=== PATIENT | male | born 1965 | race Caucasian/White ===

== ENCOUNTER 2020-08-05 00:34 | Emergency (ER) | payer OTHER ==
[2020-08-05] MEDS ORDERED: Acetaminophen/oxyCODONE 325-5 MG Tab PO STA (01:21)
[2020-08-05] MEDS ORDERED: Ketorolac 60 MG/2 ML SDV IM ONE (01:21)
--- NOTE | 2020-08-05 01:27 | EDM.PDOC ---
ED HPI GENERAL MEDICAL PROBLEM - General Chief Complaint: Back Pain or Injury Stated Complaint: FELL Time Seen by Provider: 08/05/20 01:05 Source of Information: Reports: Patient, Family, RN History Limitations: Reports: Other (no old records) - History of Present Illness INITIAL COMMENTS - FREE TEXT/NARRATIVE: 54 yo male visiting for a few days from [place], [place] presents with worsening of chronic low back pain after he tripped over a fire pit. He has worsening of his L leg numbness currently. No loss of bowel or bladder control. Is having a hard time walking since the fall. Is here with his . Did not get burned when he fell. Onset: Today, Sudden Onset Date: 08/05/20 Duration: Minutes: Location: Reports: Back, Radiates to (L leg) Quality: Reports: Ache (back), Other (numbness of L leg) Severity: Severe Improves with: Reports: Rest Worsens with: Reports: Movement Context: Reports: Trauma (superimposed on chronic.) Associated Symptoms: Reports: Other (some added effort needed to empty bladder). 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 T3-T6 crush injuries Psychiatric History: Reports: PTSD Hematologic History: Reports: Anemia - Infectious Disease History Infectious Disease History: Reports: Chicken Pox, Measles, Mumps - Past Surgical History HEENT Surgical History: Reports: Adenoidectomy, Naso-Sinus Surgery, Tonsillectomy Cardiovascular Surgical History: Reports: None GI Surgical History: Reports: Appendectomy Musculoskeletal Surgical History: Reports: Arthroscopic Knee, Arthroscopic Procedure, Shoulder Surgery Other Musculoskeletal Surgeries/Procedures:: 11 surgeries on left, 2 on right arms. Social & Family History - Tobacco Use Smoking Status *Q: Never Smoker - Caffeine Use Caffeine Use: Reports: Coffee, Energy Drinks, Soda, Tea Caffeine Use Comment: lots of coffee daily - Alcohol Use Date of Last Drink: 08/05/20 - Recreational Drug Use Recreational Drug Use: No ED ROS GENERAL - Review of Systems Review Of Systems: See Below Constitutional: Reports: No Symptoms HEENT: Reports: No Symptoms Respiratory: Reports: No Symptoms Cardiovascular: Reports: No Symptoms GI/Abdominal: Reports: No Symptoms : Reports: Flank Pain (Left flank intermittently for a few days. ), Other (difficulty initiating his urine stream. ). Denies: Dysuria, Hematuria Musculoskeletal: Reports: Back Pain (low back, especially on the right. ) Skin: Reports: No Symptoms Neurological: Reports: Numbness (L leg), Difficulty Walking ED EXAM,LOWER BACK PAIN/INJURY - Physical Exam Exam: See Below Exam Limited By: No Limitations General Appearance: Alert, WD/WN, No Apparent Distress Eye Exam: Bilateral Eye: Normal Inspection Ears: Normal External Exam, Normal Canal, Hearing Grossly Normal Nose: Normal Inspection, No Blood Throat/Mouth: Normal Inspection, Normal Lips, Normal Oropharynx, Normal Voice, No Airway Compromise Head: Atraumatic, Normocephalic Neck: Normal Inspection Respiratory/Chest: No Respiratory Distress, Lungs Clear, Normal Breath Sounds, No Accessory Muscle Use Cardiovascular: Regular Rate, Rhythm, No Edema Back Exam: Normal Inspection, Decreased Range of Motion. No: CVA Tenderness (R), CVA Tenderness (L) Extremities: Normal Inspection, Normal Range of Motion, Non-Tender, No Pedal Edema. No: Pedal Edema Neurological: Alert, Normal Mood/Affect, Normal Dorsiflexion, CN II-XII Intact, Oriented x 3, Other (subjective numbness of L leg) DTR - Lower Extremities: 0: Knee (L), 1+: Knee (R) Psychiatric: Normal Affect, Normal Mood Skin Exam: Warm, Dry, Intact, Normal Color, No Rash Course - Vital Signs Last Recorded V/S: Last Vital Signs Temp 36.4 C 08/05/20 01:04 Pulse 71 08/05/20 01:04 Resp 18 08/05/20 01:04 BP 118/87 08/05/20 01:04 Pulse Ox 95 08/05/20 01:04 - Orders/Labs/Meds Orders: Active Orders 24 hr Category Date Time Status Bladder Scan [RC] ASDIRECTED Care 08/05/20 01:22 Active Labs: Laboratory Tests 08/05/20 Range/Units 02:04 Urine Color Yellow (YELLOW) Urine Appearance Clear (CLEAR) Urine pH 5.5 (5.0-8.0) Ur Specific [place] 1.025 (1.008-1.030) Urine Protein Negative (NEGATIVE) mg/dL Urine Glucose (UA) Negative (NEGATIVE) mg/dL Urine Ketones Negative (NEGATIVE) mg/dL Urine Occult Blood Negative (NEGATIVE) Urine Nitrite Negative (NEGATIVE) Urine Bilirubin Negative (NEGATIVE) Urine Urobilinogen 0.2 (0.2-1.0) EU/dL Ur Leukocyte Esterase Negative (NEGATIVE) Urine RBC 0-5 (0-5) Urine WBC 0-5 (0-5) Ur Epithelial Cells Few Amorphous Sediment Not seen Urine Bacteria Few Urine Mucus Not seen Meds: Medications Discontinued Medications Generic Name Dose Route Start Last Admin Trade Name Freq PRN Reason Stop Dose Admin Ketorolac Tromethamine 60 mg 08/05/20 01:21 08/05/20 01:31 Toradol IM 08/05/20 01:22 60 mg ONETIME ONE Administration Oxycodone/Acetaminophen 1 tab 08/05/20 01:21 08/05/20 01:30 Percocet 325-5 Mg PO 08/05/20 01:22 1 tab ONETIME STA Administration - Re-Assessments/Exams Free Text/Narrative Re-Assessment/Exam: 08/05/20 02:18 Improved after pain meds, still having some pain and numbness. Departure - Departure Time of Disposition: 02:23 Disposition: Home, Self-Care 01 Condition: Fair Clinical Impression: Herniated intervertebral disc of lumbar spine, Left leg numbness - Discharge Information *PRESCRIPTION DRUG MONITORING PROGRAM REVIEWED*: No *COPY OF PRESCRIPTION DRUG MONITORING REPORT IN PATIENT [place]: No Instructions: Herniated Disk, [id number] Referrals: PCP,None [Primary Care Provider] - Forms: ED Department Discharge Additional Instructions: Take prednisone as directed with food. Avoid lifting, bending or twisting. See your provider as soon as you return home. Take ibuprofen 600 mg every 6 hrs with food, next dose after 7 am. Take Percocet or acetaminophen for added relief. No driving when taking the Percocet. Sepsis Event Note (ED) - Evaluation Sepsis Screening Result: No Definite Risk - Focused Exam Vital Signs: Vital Signs Temp Pulse Resp BP Pulse Ox 08/05/20 01:04 36.4 C 71 18 118/87 95 - My Orders Last 24 Hours: My Active Orders 08/05/20 01:22 Bladder Scan [RC] ASDIRECTED - Assessment/Plan Last 24 Hours: My Active Orders 08/05/20 01:22 Bladder Scan [RC] ASDIRECTED
== END 2020-08-05 02:40 | disposition home or self-care (01) ==
LOC: JP.ED 00:34
DX: M51.26 Other intervertebral disc displacement, lumbar region (principal); R20.0 Anesthesia of skin; I10 Essential (primary) hypertension; R39.198 Other difficulties with micturition; Z91.030 Bee allergy status
CPT/HCPCS: 51798; 81001; 96372; 99284; A9270; J1885; 99283